=== PATIENT | female | born 1945 | race Caucasian/White ===

== ENCOUNTER 2023-10-04 11:37 | Day surgery (SDC) | payer OTHER, MEDICAID ==
[2023-10-01 12:14] VITALS: BMI 37.7
[2023-10-04 12:12] LABS: Hematocrit 37.1 % (34.9-44.5); Hemoglobin 13.2 g/dL (12.0-15.5); Mean Corpuscular HGB CONC 35.6 g/dL (32.0-36.0); Mean Corpuscular Hemoglobin 30.8 pg (27.0-33.0); Mean Corpuscular Volume 86.7 fL (81.6-98.3); Mean Platelet Volume 10.1 fL (7.4-10.4); Platelet Count 353 10x3/uL (150-450); Red Blood Cell (RBC) Count 4.28 10x6/uL (3.90-5.03); White Blood Cell (WBC) Count 15.3 10x3/uL (3.5-10.5)
[2023-10-04] MEDS ORDERED: Clindamycin/D5W 900 mg/50 ml Premix Bag ONE (12:19)
[2023-10-04 12:25] LABS: Anion Gap 16 mmol/L (10-20); BUN (Urea Nitrogen) 21 mg/dL (9.8-20.1); Calc. Creatinine Clearance 85 mL/min (70-130); Calcium 10.5 mg/dL (7.8-10.44); Carbon Dioxide 24 mmol/L (23-31); Chloride 96 mmol/L (98-107); Estimated GFR 65; Glucose 101 mg/dL (83-110); Potassium 4.5 mmol/L (3.5-5.1); Sodium 131 mmol/L (136-145)
[2023-10-04] MEDS ORDERED: fentaNYL 50 mcg/mL 1 mL Vial ONE (12:34)
[2023-10-04] MEDS ORDERED: Dexamethasone 4 mg/ml Vial ONE (12:36)
[2023-10-04] MEDS ORDERED: PHENYLEPHRINE-NS 100 MCG/ML 10 ML SYRINGE ONE ×2 (12:36)
[2023-10-04] MEDS ORDERED: Ondansetron PF 4 MG/2 ML Vial ONE (12:36)
[2023-10-04] MEDS ORDERED: Bupivacaine PF 0.5% 30 ML VIAL ONE (12:45)
== END 2023-10-04 14:40 | disposition home or self-care (01) ==
LOC: CSHSDC 11:37
PROVIDERS: ATTEND Podiatrist Foot & Ankle Surgery
PROC: 0SGP04Z Fusion of Right Toe Phalangeal Joint with Internal Fixation Device, Open Approach (ICD-10-PCS; principal; 2023-10-04)
DX: M20.41 Other hammer toe(s) (acquired), right foot (principal); J45.909 Unspecified asthma, uncomplicated; I11.0 Hypertensive heart disease with heart failure; I50.32 Chronic diastolic (congestive) heart failure; E78.2 Mixed hyperlipidemia; G47.30 Sleep apnea, unspecified; Z79.899 Other long term (current) drug therapy; Z90.49 Acquired absence of other specified parts of digestive tract; Z90.710 Acquired absence of both cervix and uterus; Z88.1 Allergy status to other antibiotic agents; Z88.2 Allergy status to sulfonamides; Z88.5 Allergy status to narcotic agent; Z88.0 Allergy status to penicillin; Z88.8 Allergy status to other drugs, medicaments and biological substances; Z91.040 Latex allergy status
CPT/HCPCS: 28285; 73620; 80048; 85027; 93005; C1713; J0665; J1100; J2405; J3010; J3490; 36415; 93010